=== PATIENT | male | born 1945 | race African-American/Black ===

== ENCOUNTER → 2016-09-12 | Emergency (ER) | payer OTHER ==
[~2016-09-12] MED LIST: ETOMIDATE 40 MG/20 ML VIAL IVPUSH ONE; LORAZEPAM CARPU-JECT 2 MG/ML DISP.SYRIN IVPUSH ONE; LORAZEPAM CARPU-JECT 2 MG/ML DISP.SYRIN ONE; RAPID SEQUENCE INTUBATION KIT NR ONE; ROCURONIUM BROMIDE 50 MG/5 ML VIAL IVPUSH ONE; SUCCINYLCHOLINE CHLORIDE 200 MG/10 ML VIAL IVPUSH ONE; levETIRAcetam 500 MG/5 ML INJECTION VIAL IVPB ONE
[2016-09-12 00:28] VITALS: BMI 33.0
--- NOTE | 2016-09-12 00:43 | PDOC ---
History of Present Illness <Kaity Royal - Last Filed: 09/12/16 01:40> - General History Source: EMS, Family Exam Limitations: Clinical Condition - History of Present Illness Initial Comments: 09/12/16 01:17 The patient is a 70 year old male with history of hypertension, diabetes, CHF, BPH, s/p CVA, history of 1 episode of seizure activity, brought in by EMS unresponsive. Per his family member's at bedside, the patient went out to eat dinner this evening. He arrived home and was watching TV around 11:45 PM when he began "jerking" his neck and his family activated EMS. EMS arrived on the scene at approximately 12:00 PM and the patient was still actively jerking. EMS gave him 2 of Ativan and he subsequently became unresponsive. Patient was seen immediately by me on ED arrival and was sent to radiology for stat CT of the head. The family members deny complaints of fever, chills, chest pain, shortness of breath, vomiting, or diarrhea. Per the patient's family members, the patient had been on Keppra for his seizures but recently discontinued, restarted, and again discontinued his Keppra under his doctor's recommendations. He is not currently on Keppra. <Ibis Doll - Last Filed: 09/12/16 04:57> - General Chief Complaint: Altered Mental Status Stated Complaint: SEIZURE Time Seen by Provider: 09/12/16 00:22 Past History - Past Medical History HTN: Yes - Psycho/Social/Smoking Cessation Hx Suicidal Ideation: No Smoking History: Unknown if ever smoked <Kaity Royal - Last Filed: 09/12/16 01:40> <Ibis Doll - Last Filed: 09/12/16 04:57> - Past Medical History Allergies/Adverse Reactions: Allergies Allergy/AdvReac Type Severity Reaction Status Date / Time No Known Allergies Allergy Verified 09/12/16 00:27 Home Medications: Ambulatory Orders Amlodipine Besylate 10 mg PO DAILY 09/12/16 Aspirin [Radha Chewable] 81 mg PO DAILY 09/12/16 Aspirin/Dipyridamole [Aggrenox -] 1 combo PO BID 09/12/16 Duloxetine HCl [Cymbalta] 20 mg PO HS 09/12/16 Ferrous Sulfate 325 mg PO DAILY 09/12/16 Furosemide [Lasix] 40 mg PO DAILY 09/12/16 Hydralazine HCl 100 mg PO TID 09/12/16 Isosorbide Mononitrate [Imdur -] 90 mg PO DAILY 09/12/16 Linagliptin [Tradjenta] 5 mg PO DAILY 09/12/16 Losartan Potassium [Cozaar -] 50 mg PO HS 09/12/16 Melatonin 10 mg PO DAILY 09/12/16 Metoprolol Succinate [Toprol Xl -] 50 mg PO BID 09/12/16 Simvastatin 20 mg PO HS 09/12/16 Review of Systems - Review of Systems Able to Perform ROS?: Yes Comments:: 09/12/16 01:22 As per HPI, otherwise unable to obtain secondary to clinical condition. <Ibis Doll - Last Filed: 09/12/16 04:57> *Physical Exam - Vital Signs Last Vital Signs Temp Pulse Resp BP Pulse Ox 88 18 151/98 99 09/12/16 00:23 09/12/16 00:23 09/12/16 00:23 09/12/16 00:23 <Kaity Royal - Last Filed: 09/12/16 01:40> - Vital Signs Last Vital Signs Temp Pulse Resp BP Pulse Ox 100.2 F H 88 18 151/98 99 09/12/16 00:23 09/12/16 00:23 09/12/16 00:23 09/12/16 00:23 09/12/16 00:23 - Physical Exam Comments: 09/12/16 01:23 GENERAL: Unresponsive. HEAD: No signs of trauma EYES: PERRLA, +forced gaze to the right, sclera anicteric, conjunctiva clear ENT: Auricles normal inspection, nares patent, oropharynx clear without exudates. Moist mucosa NECK: Normal passive ROM, supple, no lymphadenopathy, JVD, or masses LUNGS: Breath sounds equal, clear to auscultation bilaterally. No wheezes, and no crackles HEART: Regular rate and rhythm, normal S1 and S2, no murmurs, rubs or gallops ABDOMEN: Distended, normoactive bowel sounds. No guarding, no rebound. +Small ventral hernia. EXTREMITIES: Normal range of motion, no edema. No clubbing or cyanosis. No cords, erythema, or tenderness. NEUROLOGICAL: +Forced gaze to the right. Right side of the body shows no effort against gravity. Left side does show effort against gravity. Unable to assess sensation, speech, gait secondary to clinical condition. SKIN: Warm, Dry, normal turgor, no rashes or lesions noted. <IngriscelyIbis - Last Filed: 09/12/16 04:57> Procedures - Intubation Intubation Method: orotracheal Blade used: Mac Tube Size (Fr): 7.5 Medications: Etomidate, Rocuronium, Succinylcholine Tube position confirmed by: Direct visualization, CO2 detector, Chest x-ray, Breath sounds Breath Sounds after Intubation: equal Intubation Complications: no complications Post Intubation Xray: Yes <RoyalKaity - Last Filed: 09/12/16 01:40> Heart Score/ECG Review #1 09/12/16 04:56 EKG obtained 0:38. Sinus rhythm with 1st degree AV block, 90 bpm. Left axis deviation, T wave abnormality, consider inferolateral ischemia. Prolonged QT, abnormal ECG. <Ibis Doll - Last Filed: 09/12/16 04:57> ED Treatment Course - LABORATORY CBC & Chemistry Diagram: 09/12/16 00:51 09/12/16 00:51 - RADIOLOGY Radiology Studies Ordered: Category Date Time Status HEAD CT (STROKE) [CT] Stat CT Scan 09/12/16 00:22 Taken CHEST X-RAY PORTABLE* [RAD] Stat Radiology 09/12/16 00:23 Ordered <Kaity Royal Last Filed: 09/12/16 01:40> - LABORATORY CBC & Chemistry Diagram: 09/12/16 00:51 09/12/16 00:51 - ADDITIONAL ORDERS Additional order review: 09/12/16 00:51 RBC 3.59 L MCV 96.1 H MCHC 31.9 L RDW 14.0 MPV 8.6 Neutrophils % 88.8 H Lymphocytes % 6.2 L Monocytes % 3.6 L Eosinophils % 1.1 Basophils % 0.3 - Medications Given in the ED: ED Medications Discontinued Medications Generic Name Dose Route Start Last Admin Trade Name Freq PRN Reason Stop Dose Admin Levetiracetam 1,000 mg 09/12/16 00:39 09/12/16 00:51 Keppra Injection - IVPB 09/12/16 00:40 1,000 mg ONCE ONE Administration Lorazepam 2 mg 09/12/16 00:39 09/12/16 00:51 Ativan Injection - IVPUSH 09/12/16 00:40 2 mg ONCE ONE Administration <Ibis Doll - Last Filed: 09/12/16 04:57> Medical Decision Making - Medical Decision Making 09/12/16 01:32 Pt arrived after seizure like activity; recently his keppra maintenance was stopped while he was an inpatient at [facility] for CHF/pneumonia diagnosis. Pt had neck jerking/seizure episode at 11:45PM on 09/12/15. EMS came to him at midnight 09/11. Pt came to the ER around 12:10 am 09/12/16, and we took him to CT head for his gaze palsy forced to the right side and his inability to move his right side against gravity; he is able to keep his left arm and left leg up against gravity, but he will not respond to hos yoli or respond to commands. Pt is unresponsive and remained unresponsive, so we intubated to protect his airway. Pt has low grade fever 100.2 rectal. Ramon draining clear urine. CXR reveals elevation of right hemidiaphragm ?paralysis? Pt also has elnlarged water bottle heart; ETT in good position 24cm at the lips; lung joseph show congestion. His Normal saline drip will be stopped. Stat team arrived and they are working on transferring the patient. 09/12/16 01:41 Pt will go to [facility] for MRI brain. I attempted to get MRI here; radiologist/tech was getting paged; permission was taking a long time; we were told that patient may get the MRI in the AM. Pt requires immediate MRI to distinguish between a new stroke vs no stroke/just seizures. Pt is potentially in he window for therapy if he is suffering an ischemic Stroke. Pt has a history significant for stroke. He is getting aggrenox daily for the stroke. He also has diet controlled DM and HTN and he has finasteride for BPH, and cymbalta and other mood meds. Pt accepted to the [facility] ER by Dr CARRILLO, and I spoke to the neurology team investigations chief as well. <Kaity Royal - Last Filed: 09/12/16 01:40> - Medical Decision Making 09/12/16 01:[address] read and reviewed by radiology as unremarkable for acute intracranial pathology. No evidence of acute hemorrhage or infarct, but there is evidence of prior strokes. Radiologist recommends MRI for further evaluation to distinguish stroke vs. seizure. Patient accepted for transfer to [facility]. Awaiting transport. Patient had another episode of witnessed seizure like activity in the ED with associated urinary incontinence. He was intubated for airway protection since he remained unresponsive. <Ibis Doll - Last Filed: 09/12/16 04:57> *DC/Admit/Observation/Transfer - Transfer to Acute Care Facility Receiving Facility: [facility]. <Kaity Royal - Last Filed: 09/12/16 01:40> - Attestations Scribe Attestion: 09/12/16 01:30 Documentation prepared by Ibis Doll, acting as medical library assistant for Kaity Royal MD. <Ibis Doll - Last Filed: 09/12/16 04:57> Diagnosis at time of Disposition: CVA (cerebral vascular accident), Seizure - Discharge Dispostion Disposition: TRANSFER ACUTE CARE/OTHER HOSP Condition at time of disposition: Guarded - Referrals Referrals: STAFF,NOT ON [Primary Care Provider] -
--- NOTE | 2016-09-12 00:49 | PDOC ---
NIH Stroke Scale - Last Known Well Date/Time & Onset Date Last Known Well: 09/11/16 Time Last Known Well: 23:45 - Initial Evaluation Level of consciousness: Coma Ask patient the month and their age: Both incorrect Ask patient to open & close eyes; make fist and let go: Both incorrect Best gaze (horizontal eye movement): Forced deviation Visual field testing: Bilateral hemianopia (blind including cortical blindness) Facial paresis (Show teeth/raise eyebrows/close eyes tight): Complete paralysis of one or both sides (Upper and lower face) Motor Function: Left Arm: No effort against gravity Motor Function: Right Arm: Some effort against gravity Motor Function: Left Leg: No effort against gravity Motor Function: Right Leg: Some effort against gravity Limb Ataxia: Untestable (Joint fused or limb amputated), explain: (patient is not alert to follow commands) Sensory(Use pinprick test arms,legs,trunk,face/side to side): Severe to total sensory loss Best language (Describe picture, name items, read sentences): Mute Dysarthria (read several words): Near unintelligible or unable to speak Extinction and Inattention: Profound yessi-inattention or extinction to more than one modality - Total Score NIH Stroke Scale Score: 34
[2016-09-12 01:01] LABS: BASOPHIL 0.3 % (0-2.0); EOSINOPHIL 1.1 % (0-4.5); MCH 30.7 pg (25.7-33.7); MCHC 31.9 g/dl (32.0-35.9); MEAN CELL VOLUME 96.1 fl (80-96); MEAN PLT VOLUME 8.6 fl (7.5-11.1); NEUTROPHILS 88.8 % (42.8-82.8); PLATELET COUNT 308 K/MM3 (134-434); WHITE BLOOD COUNT 13.2 K/mm3 (4.0-10.0)
[2016-09-12 01:26] LABS: ALBUMIN 3.1 g/dl (3.4-5.0); BILIRUBIN,TOTAL 0.6 mg/dL (0.2-1.0); CALCIUM 8.5 mg/dL (8.5-10.1); COCKROFT - GAULT 35.97; CREATININE 2.9 mg/dL (0.7-1.3); TOT PROT 6.8 g/dl (6.4-8.2)
[2016-09-12 01:29] LABS: TROPONIN I 0.04 ng/ml (0.00-0.05)
[2016-09-12 01:37] LABS: INR 1.11 (0.82-1.09); PROTHROMBIN TIME (PATIENT) 12.2 SEC (9.98-11.88)
[2016-09-12 03:14] VITALS: BP 174/108; PULSE 91; TEMP 100.1
--- NOTE | 2016-09-14 12:57 | EKG ---
Test Reason : Blood Pressure : / mmHG Vent. Rate : 090 BPM Atrial Rate : 090 BPM P-R Int : 224 ms QRS Dur : 080 ms QT Int : 388 ms P-R-T Axes : 071 -36 250 degrees QTc Int : 474 ms SINUS RHYTHM WITH 1ST DEGREE A-V BLOCK LEFT AXIS DEVIATION T WAVE ABNORMALITY, CONSIDER INFEROLATERAL ISCHEMIA PROLONGED QT ABNORMAL ECG NO PREVIOUS ECGS AVAILABLE CLINICAL CORRELATION IS RECOMMENDED BASELINE ARTIFACT Confirmed by KYLER QUIGLEY, CLEMENTINA ([id number]) on 09/14/2016 12:57:13 PM Referred By: Confirmed By:CLEMENTINA CHÁVEZ MD
== END | disposition short-term general hospital (02) ==
LOC: JER 00:20
PROC: 3E033NZ Introduction of Analgesics, Hypnotics, Sedatives into Peripheral Vein, Percutaneous Approach (ICD-10-PCS; principal; 2016-09-12)
PROC: 3E033GC Introduction of Other Therapeutic Substance into Peripheral Vein, Percutaneous Approach (ICD-10-PCS; 2016-09-12)
DX: I63.9 Cerebral infarction, unspecified (principal); R56.9 Unspecified convulsions; E11.9 Type 2 diabetes mellitus without complications; I10 Essential (primary) hypertension; N40.0 Benign prostatic hyperplasia without lower urinary tract symptoms
CPT/HCPCS: 36415; 70450-TC; 71010-TC; 80053; 82550; 84484; 85025; 85610; 85730; 93005; 93010; 96374; 96375; 99284-25